=== PATIENT | female | born 1930 | race Caucasian/White ===

== ENCOUNTER 2016-03-30 13:19 | Emergency (ER) | payer MEDICARE, OTHER ==
[~2016-03-30] VITALS: Ht 170.2 cm; Wt 71.8 kg
[~2016-03-30 13:19] MED LIST: ACET325T33 PO; AMIO200T PO; ASCO500C7 PO; ATOR40TA21 PO; BISA-57 PO; BISA10SU58 PR; CELE200C PO; CRAN425C PO; CYCL1DRO BOTH EYES; DOCU-144 PO; FAMO20TA18 PO; FURO-109 PO; FURO20TA3 PO; HYDR-3498 PO; LACT1CAP4 PO; METO-448 PO; MONT10TA21 PO; MULT-876 PO; NA P118E PR; ONDA4TAB8 PO; TAMS-14 PO; UDMOM PO; ZOLP5TAB6 PO
[2016-03-30 14:04] VITALS: Ht 170.2 cm; Wt 71.8 kg
[2016-03-30] MEDS ORDERED: ONDANSETRON INJ 8 MG in DEXTROSE 5% 50 ML IV STA (14:16)
[2016-03-30] MEDS: morphine 2 MG INJ IV STA ×2 (14:16→15:51)
[2016-03-30] MEDS: SOD CHLORIDE 0.9% 500 ML IV STA ×2 (14:16→15:52)
[2016-03-30] MEDS ORDERED: AMIO200T2 PO (14:45)
[2016-03-30] MEDS ORDERED: POLY15DR25 OP (14:46)
[2016-03-30] MEDS ORDERED: BISA10SU55 RC (14:47)
[2016-03-30 14:48] LABS: BASOPHILS % 0.3 % (0.0-2.0); EOSINOPHILS # 0.2 10^3/ul (0.0-0.5); EOSINOPHILS % 1.6 % (0.0-7.0); HEMATOCRIT 35.2 % (37.0-47.0); HEMOGLOBIN 11.1 g/dl (12.0-16.0); LYMPHOCYTES # 2.1 10^3/ul (0.8-2.9); LYMPHOCYTES % 17.8 % (15.0-51.0); MEAN CORPUSCULAR HEMOGLOBIN 22.4 pg (29.0-33.0); MEAN CORPUSCULAR HGB CONC 31.5 g/dl (32.0-37.0); MEAN CORPUSCULAR VOLUME 71.1 fl (82.0-101.0); MEAN PLATELET VOLUME 11.2 fl (7.4-10.4); MONOCYTE # 0.9 10^3/ul (0.3-0.9); MONOCYTES % 8.1 % (0.0-11.0); NEUTROPHIL # 8.4 10^3/ul (1.6-7.5); NEUTROPHILS % 72.2 % (39.0-77.0); PLATELET COUNT 284 10^3/UL (140-440); RED BLOOD COUNT 4.96 10^6/ul (4.20-5.40); RED CELL DISTRIBUTION WIDTH 15.6 % (11.5-14.5); UNCORRECTED WBC 11.6 10^3/ul (4.8-10.8); WHITE BLOOD COUNT 11.6 10^3/ul (4.8-10.8)
[2016-03-30] MEDS ORDERED: FER325 PO (14:48)
[2016-03-30] MEDS ORDERED: MAGN400O4 PO (14:49)
[2016-03-30] MEDS ORDERED: TAMS-14 PO (14:49)
[2016-03-30 14:50] LABS: SUSPECT 1
[2016-03-30 14:51] LABS: CONDITION 1; LH ANALYZER COMMENTS 1
[2016-03-30] MEDS ORDERED: TRAM-40 PO (14:51)
[2016-03-30 15:17] LABS: ADD UMIC YES; URINE BILIRUBIN (Dip) NEGATIVE (NEGATIVE); URINE BLOOD (Dip) TRACE (NEGATIVE); URINE COLOR LT. YELLOW (YELLOW); URINE GLUCOSE (Dip) NEGATIVE (NEGATIVE); URINE KETONES (Dip) NEGATIVE (NEGATIVE); URINE LEUKOCYTE ESTERASE (Dip) 2+ (NEGATIVE); URINE NITRITE (Dip) NEGATIVE (NEGATIVE); URINE TOTAL PROTEIN (Dip) NEGATIVE (NEGATIVE); URINE UROBILINOGEN (Dip) 0.2 E.U./dL (0.1-1.0)
[2016-03-30] MEDS ORDERED: ONDANSETRON 4 MG INJ ONE (15:25)
[2016-03-30 15:41] LABS: BACTERIA,URINE MANY; SQUAMOUS EPITHELIAL CELL,UR FEW
[2016-03-30] MEDS: ONDANSETRON 4 MG INJ IV STA ×2 (15:42→15:51)
[2016-03-30] MEDS ORDERED: CEFTRIAXONE 1 GM/50 ML (PMX) 50 ML IVPB ONE (16:00)
[2016-03-30 16:03] LABS: ALBUMIN 4.2 g/dl (3.3-4.9)
[2016-03-30 16:04] LABS: POTASSIUM 3.5 mmol/L (3.5-5.1)
[2016-03-30 16:05] LABS: CREATININE 0.92 mg/dl (0.44-1.00)
[2016-03-30 16:06] LABS: ALBUMIN/GLOBULIN RATIO 1.16; BILIRUBIN,INDIRECT 0.3 mg/dl (0-1.1); BILIRUBIN,TOTAL 0.3 mg/dl (0.2-1.3); CALCIUM 9.6 mg/dl (8.4-10.2); TOTAL PROTEIN 7.8 g/dl (6.1-8.1)
--- NOTE | 2016-03-30 16:32 | ERD ---
ER Documentation Chief Complaint Date/Time DATE: 03/30/16 TIME: 16:29 Chief Complaint BROUGHT IN VIA PRIVATE AMBULANCE FROM [facility] DUE TO BACK PAIN HPI This 85-year-old female presents to the emergency room after being brought in by ambulance due to back pain. According to the patient's daughter who is giving a history this patient does have a history of compression fractures in her back. The patient denies any trauma. The patient localizes the pain to the right flank and states is achy pain sometimes worse with urination. Patient is denying any fevers, chills or other constitutional symptoms at this time. Patient states any movement worsens the back pain, no relieving factors ROS All systems reviewed and are negative except as per history of present illness. Medications Home Meds Active Scripts Amiodarone Hcl* (Amiodarone Hcl*) 200 Mg Tab, 200 MG PO DAILY for 30 Days, TAB Prov:PERRY LIANG V. [employer]IC[employer] 03/19/15 Bisacodyl* (Dulcolax*) 5 Mg Tabec, 5 MG PO DAILY Y for CONSTIPATION for 30 Days Prov:PERRY LIANG [employer]. [employer] SERVICER 02/26/15 Magnesium Hydroxide* ([place]' MOM*) 30 Ml Susp, 30 ML PO DAILY Y for CONSTIPATION for 30 Days Prov:PERRY LIANG V. [employer] SERVICER 02/26/15 Reported Medications Tramadol Hcl* (Ultram*) 50 Mg Tablet, 50 MG PO BID Y for PAIN, TAB 03/30/16 Magnesium Hydroxide* (Milk Of Magnesia*) 400 Mg/5 Ml Oral.susp, 30 ML PO DAILY, ML 03/30/16 Tamsulosin Hcl* (Flomax*) 0.4 Mg Cap.er.24h, 0.4 MG PO DAILY, CAP 03/30/16 Ferrous Sulfate* (Ferrous Sulfate*) 325 Mg Tabec, 325 MG PO DAILY, TAB 03/30/16 Bisacodyl (Dulcolax) 10 Mg Supp.rect, 10 MG RC PRN, SUPP.RECT 03/30/16 Polyvinyl Alcohol (Tears Again) 15 Ml Drops, 1 DRP OP PRN, BOTTLE 03/30/16 Amiodarone Hcl* (Amiodarone Hcl*) 200 Mg Tablet, 200 MG PO DAILY, #30 TAB 03/30/16 Cyclosporine (RESTASIS) 1 Each Droperette, 1 DROP BOTH EYES BID, #1 BOX 12/03/15 Famotidine* (Famotidine*) 20 Mg Tablet, 20 MG PO DAILY, #30 TAB 12/03/15 Metoprolol Tartrate* (Lopressor*) 25 Mg Tab, 12.5 MG PO DAILY, #60 TAB HOLD IF SBP BELOW 110, HR BELOW 60 12/03/15 Furosemide* (Furosemide*) 20 Mg Tablet, 20 MG PO DAILY for Q 5PM, #60 TAB 12/03/15 Lactobacillus Acidophilus/Pect (Acidophilus-Pectin Capsule) 1 Each Capsule, 1 EACH PO DAILY, CAP 12/03/15 Docusate Sodium* (Colace*) 100 Mg Capsule, 200 MG PO QHS, #30 CAP 12/03/15 Celecoxib* (Celebrex*) 200 Mg Capsule, 200 MG PO DAILY, CAP 12/03/15 Hydrocodone Bit-Acetaminophen* ([place]*) 5-325 Mg Tab, 1 TAB PO Q6 Y for MODERATE PAIN LEVEL 4-6, TAB 03/12/15 Ascorbic Acid* (Vitamin C*) 500 Mg Capsule.sa, 500 MG PO BID, CAP 03/12/15 Acetaminophen* (Tylenol*) 325 Mg Tablet, 650 MG PO Q4H Y for MILD PAIN LEVEL 1-3 , TAB 03/12/15 Acetaminophen* (Tylenol*) 325 Mg Tablet, 650 MG PO DAILY Y for PAIN MANAGEMENT, TAB 03/12/15 Hydrocodone Bit-Acetaminophen* ([place]*) 5-325 Mg Tab, 2 TAB PO Q6 Y for SEVERE PAIN LEVEL 7-10, TAB 03/12/15 Multivit-Min/Iron Fum/Folic AC (Pxfju-Bvunltf-Tsiqjxqt Tablet) 1 Each Tablet, 1 TAB PO DAILY, TAB 03/12/15 Na Phos,M-B/Na Phos,Di-Ba* (Fleet* Enema) 118 Ml Enema, 118 ML IA Q48H Y for CONSTIPATION, ENEMA 03/12/15 Bisacodyl* (Dulcolax*) 10 Mg/Supp.rect Supp.rect, 10 MG IA Q24H Y for CONSTIPATION, SUPP.RECT 03/12/15 Cranberry Extract (Cranberry) 425 Mg Capsule, 425 MG PO DAILY, CAP 03/12/15 Zolpidem Tartrate* (Zolpidem Tartrate*) 5 Mg Tablet, 5 MG PO QHS for INSOMNIA, TAB 03/12/15 Ondansetron Hcl* (Zofran*) 4 Mg Tablet, 4 MG PO Q4H for PRN FOR N/V, TAB 03/12/15 Montelukast Sodium* (Singulair*) 10 Mg Tablet, 10 MG PO QHS, #30 TAB 01/27/15 Furosemide* (Lasix*) 40 Mg Tablet, 40 MG PO DAILY for Q9AM, TAB 01/27/15 Atorvastatin (Lipitor) 40 Mg Tablet, 40 MG PO DAILY 12/22/10 Discontinued Scripts Tamsulosin Hcl* (Flomax*) 0.4 Mg Capsr, 0.4 MG PO HS for 30 Days, CAP Prov:PERRY LIANG V. [employer] SERV[employer]ER 03/19/15 Allergies Allergies: Coded Allergies: No Known Drug Allergies (Verified Allergy, Mild, 03/30/16) PMhx/Soc History of Surgery: Yes (see notes) Anesthesia Reaction: No Hx Neurological Disorder: No Hx Respiratory Disorders: No Hx Cardiac Disorders: Yes (hypertension, CAD, CHF, aortic and mitral valve stenosis, atrial ) Hx Psychiatric Problems: No Hx Miscellaneous Medical Probl: Yes (see notes) Hx Alcohol Use: No Hx Substance Use: No Hx Tobacco Use: No Smoking Status: Current every day smoker Physical Exam Vitals Vital Signs Date Time Temp Pulse Resp B/P Pulse Ox O2 Delivery O2 Flow Rate FiO2 03/30/16 14:04 98.7 72 18 140/62 98 Physical Exam INITIAL VITAL SIGNS: Reviewed by me GENERAL: The patient is well developed and appropriate for usual state of health in no apparent distress HEENT: Pupils equal, round, and reactive to light. EOMI. There is no scleral icterus. NECK: C-spine is soft and supple, there is no meningismus. There is no cervical lymphadenopathy. LUNGS: Clear to auscultation bilaterally. There are no rales, wheezes or rhonchi. HEART: Regular rate and rhythm, no murmurs, clicks, rubs or gallops. ABDOMEN: Right-sided CVAT, otherwise soft, non-tender, non-distended. There are bowel sounds in all four quadrants. No rebound or guarding. EXTREMITIES: There is no peripheral cyanosis or edema. No focal swelling or erythema. NEUROLOGICAL: The patient moves all four extremities with 5/5 strength. Cranial nerves II - XII are intact. Normal gait. Alert and oriented SKIN: There is no apparent rash or petechiae. HEME/LYMPHATIC: There is no evidence of excessive bruising or lymphedema. PSYCHIATRIC: The patient does not appear anxious or depressed. Result Diagram: 03/30/16 1430 03/30/16 1540 Results 24 hrs Laboratory Tests Test 03/30/16 14:30 03/30/16 14:50 03/30/16 15:40 Basophils # 0.010^3/ul Basophils % 0.3% Blood Morphology Comment Eosinophils # 0.210^3/ul Eosinophils % 1.6% Hematocrit 35.2% Hemoglobin 11.1g/dl Lymphocytes # 2.110^3/ul Lymphocytes % 17.8% Mean Corpuscular Hemoglobin 22.4pg Mean Corpuscular Hemoglobin Concent 31.5g/dl Mean Corpuscular Volume 71.1fl Mean Platelet Volume 11.2fl Monocytes # 0.910^3/ul Monocytes % 8.1% Neutrophils # 8.410^3/ul Neutrophils % 72.2% Nucleated Red Blood Cells # 0.010^3/ul Nucleated Red Blood Cells % 0.0/100WBC Platelet Count 04189^3/UL Red Blood Count 4.9610^6/ul Red Cell Distribution Width 15.6% White Blood Count 11.610^3/ul Urine Bacteria MANY Urine Bilirubin NEGATIVE Urine Clarity SLIGHTLY CLOUDY Urine Color LT. YELLOW Urine Glucose NEGATIVE% Urine Hemoglobin TRACE Urine Ketones NEGATIVE Urine Leukocyte Esterase 2+ Urine Microscopic RBC 2-5/HPF Urine Microscopic WBC >200/HPF Urine Nitrite NEGATIVE Urine Specific [place] 1.010 Urine Squamous Epithelial Cells FEW Urine Total Protein NEGATIVE Urine Urobilinogen 0.2 E.U./dL Urine pH 6.0 Alanine Aminotransferase (ALT/SGPT) 22IU/L Albumin 4.2g/dl Albumin/Globulin Ratio 1.16 Alkaline Phosphatase 93IU/L Anion Gap 19 Aspartate Amino Transf (AST/SGOT) 16IU/L Blood Urea Nitrogen 20mg/dl Calcium Level 9.6mg/dl Carbon Dioxide Level 33mmol/L Chloride Level 96mmol/L Creatinine 0.92mg/dl Direct Bilirubin 0.00mg/dl Globulin 3.60g/dl Glucose Level 124mg/dl Indirect Bilirubin 0.3mg/dl Lipase 28U/L Potassium Level 3.5mmol/L Sodium Level 144mmol/L Total Bilirubin 0.3mg/dl Total Protein 7.8g/dl Current Medications Medications (Trade) Dose Ordered Sig/Yumiko Route PRN Reason Start Time Stop Time Status Last Admin Dose Admin Sodium Chloride (NS) 500 ml @ 500 mls/hr Q1H STAT IV 03/30/16 14:16 03/30/16 15:15 DC 03/30/16 15:52 Morphine Sulfate 2 mg 2 mg ONCE STAT IV 03/30/16 14:16 03/30/16 14:17 DC 03/30/16 15:51 Ondansetron HCl/ Dextrose (Zofran Inj/D5W) 54 ml @ 200 mls/hr ONCE STAT IV 03/30/16 14:16 03/30/16 15:25 DC Ondansetron HCl (Zofran Inj) 4 mg ONCE STAT IV 03/30/16 15:24 03/30/16 15:25 DC 03/30/16 15:51 Ondansetron HCl 4 mg 4 mg STK-MED ONCE .ROUTE 03/30/16 15:25 03/30/16 15:26 DC Ceftriaxone Sodium (Rocephin) 50 ml @ 100 mls/hr ONCE ONCE IVPB 03/30/16 16:00 03/30/16 16:29 Procedures/MDM This 85-year-old female presents to the emergency room for evaluation of flank pain. This patient was stating that she has flank pain localized to the right side and did have CVAT on my examination. She is afebrile, not tachycardic. Lab work and a urinalysis were obtained which does show acute cystitis. This patient was given a gram Rocephin and has no signs of sepsis at this time. She will be discharged home with a prescription for Macrobid to take over the course of the next 2 weeks. This patient is hemodynamically stable at this time. Departure Diagnosis: Primary Impression: Acute cystitis Additional Impressions: Normocytic anemia Right flank pain Condition: Stable MARBELLA HURTADO DO Mar 30, 2016 16:32
[2016-03-30] MEDS ORDERED: NITR-58 PO (16:34)
[2016-03-30] MEDS ORDERED: ACET1TAB40 PO (16:34)
[2016-03-30 19:05] VITALS: BP 128/76; PULSE 70; RESP 18; TEMP 98
== END 2016-03-30 21:00 | disposition home or self-care (01) ==
LOC: E/R 13:19
DX: N30.00 Acute cystitis without hematuria (principal); D64.9 Anemia, unspecified; R10.9 Unspecified abdominal pain; F17.210 Nicotine dependence, cigarettes, uncomplicated; I10 Essential (primary) hypertension; I50.9 Heart failure, unspecified; I25.10 Atherosclerotic heart disease of native coronary artery without angina pectoris
CPT/HCPCS: 36415; 80053; 81001; 83690; 85025; 87086; 96374; 96375; 99284; J0696; J2270; J2405; J7040; 81003

== ENCOUNTER → 2016-05-03 | Outpatient (CLI) | payer MEDICARE, OTHER ==
[~2016-05-03] MED LIST changes: +ACET1TAB40 PO; +AMIO200T2 PO; +BISA10SU55 RC; +FER325 PO; +MAGN400O4 PO; +NITR-58 PO; +POLY15DR25 OP; +TRAM-40 PO; -ZOLP5TAB6 PO; +ZOLP5TAB7 PO
--- NOTE | 2016-05-03 15:46 | RADRPT ---
PROCEDURE: Whole body bone scan study CLINICAL INDICATION: 85 -year-old patient with back pain. TECHNIQUE: Following the intravenous injection of 24.6 mCi of Tc-99m MDP, multiple spot images of the head, neck, chest, abdomen, pelvis and upper and lower extremities bilaterally were obtained. COMPARISON: No prior bone scans are available for comparison. CT scan of the pelvis dated December 03, 2015. FINDINGS: Linear area of intensely increased activity is seen at approximately L2 vertebra, which is likely re lated to compression / degenerative changes. Increased activity is seen in the region of the right hip, which may be related to prior surgery. Mildly heterogeneous distribution of activity is seen throughout the remainder of the spine and both knees. No other definite abnormal areas of increased activity or asymmetries are visualized in the study an d distribution of radionuclide is homogeneous in the skull, spine, rib cages, sternum, pelvis and vi sualized portions of the upper and lower extremities. Of incidental note, there is no evidence of mass abnormalities of the kidneys. IMPRESSION: 1. Linear area of intense uptake at approximately L2 likely due to compression changes. 2. Likely degenerative changes of the remainder of the spine and both knees. 3. Likely postsurgical changes in the right hip. 4. No other definite skeletal abnormalities. RPTAT: HH .Isabel Lubin MD, Date Time Electronically viewed and signed by .Isabel Lubin MD, on 05/03/2016 15:46 .L/
== END | disposition home or self-care (01) ==
LOC: NUC 10:25
PROVIDERS: ATTEND Internal Medicine Pulmonary Disease
DX: M48.57XA Collapsed vertebra, not elsewhere classified, lumbosacral region, initial encounter for fracture (principal)
CPT/HCPCS: 78306; A9503